=== PATIENT | male | born 1975 | race Caucasian/White ===

== ENCOUNTER 2024-09-27 10:34 | Emergency (ER) | payer OTHER, SELFPAY ==
[2024-09-27 10:49] VITALS: BP 149/66
--- NOTE | 2024-09-27 11:28 | ED.GENMED ---
History of Present Illness
General
Chief Complaint: Musculo-Skeletal Complaint
Source: patient
Time Seen by Provider: 09/27/24 11:15
History of Present Illness
History of Present Illness:
49yoM with a remote history of substance abuse (sober for 18 years, currently on Suboxone) presenting for evaluation of low back pain. He reports pain in his right lower back for the past 2 days. He denies any trauma or inciting incident. The pain
is worse with movement and certain positions. The pain is non-radiating. 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 He has not taken anything OTC for his symptoms. He denies any weakness or paresthesias of the
extremities. He denies any fevers, abdominal pain, dysuria, hematuria, incontinence, saddle anesthesia, weight loss. No prior history of back surgeries.
Past History
Past History
ED Past Medical History: Other (back pain) and Other (Pulmonary blebs)
ED Past Surgical History: Orthopedic
Social History
Tobacco: Smoker
Personal: Single
Living: with family
Employment: Employed
Phy Exam
General Physical Exam
General Presentation: well appearing and no apparent distress
General age: appears stated age
General Skin: warm and dry
General Habitus: normal
General Mental: alert
General Hydration: appears well hydrated
Pulmonary Exam
Pulmonary Exam: no respiratory distress
Gastrointestinal Exam
Gastrointestinal Exam: non tender, soft and non distended
Neurological Exam
Neurological Exam: alert and no motor deficits (5/5 strength in bilateral lower extremities)
Miladys Coma Scale
Eye Opening: Spontaneous
Verbal Response: Oriented
Motor Response: Obeys Commands
GCS Total Score: 15
Musculoskeletal Exam
Musculoskeletal Exam: other (No tenderness to palpation of lumbar region. Pain elicited with trunk flexion. No skin changes. Negative straight leg raise bilaterally. )
Skin Exam
Skin Exam: normal color and warm/dry
Psychiatric Exam
Psychiatric Exam: normal mood/affect
Course
Orders/Labs/Results
Orders:
Orders
09/27/24 11:28
Ketorolac [Toradol] 30 mg IM NOW STA
Vital Signs
Initial and Last Documented VS:
Initial Vital Signs
Temp Pulse Resp BP Pulse Ox
97.9 F 72 16 149/66 95
09/27/24 10:49 09/27/24 10:49 09/27/24 10:49 09/27/24 10:49 09/27/24 10:49
Last Documented Vital Signs
Temp Pulse Resp BP Pulse Ox
97.9 F 83 20 134/82 98
09/27/24 10:49 09/27/24 12:38 09/27/24 12:38 09/27/24 12:38 09/27/24 12:38
MDM/Problems Addressed
Differential Diagnosis Includes:
49yoM here with atraumatic R lower back pain x 2 days. Worse with movement. No red flags in history including no saddle anesthesia, incontinence, fevers, weight loss. VSS. He is well appearing in no distress. There is no reproducible tenderness to
palpation of the lumbar region but pain is elicited with trunk flexion. Lower extremities are neurovascularly intact.
No paresthesias/pain in the leg to suggest radiculopathy. Pain is constant and position so doubt kidney stone. No midline spinous process tenderness or mechanism to suggest fracture. Clinical presentation consistent with a lumbar strain. No
indication for imaging at this time. Supportive care discussed including heat, lidocaine patches, and PRN Tylenol/ibuprofen. Advised f/u with PCP and orthopedics if symptoms persist. Strict ED return precautions discussed including new
weakness/paresthesias or incontinence. He expressed understanding and is in agreement with plan. He was discharged in stable condition.
*Critical Care Note
Total Time (30-74mins, 75-104mins- exclusive of procedures): Not Applicable
ED Attending Note
-
Portions of this chart may have been created with voice recognition software.� Occasional wrong word or��sound alike� substitutions may have occurred due to the inherent limitations of voice recognition software.
Discharge Plan
Departure
Patient Disposition: Home (Routine Discharge)
Date of Disposition: 09/27/24
Time of Disposition: 11:30
Patient with high blood pressure during this ER visit?: Yes
Discharge Problem:
Strain of lumbar region
Instructions: Back Muscle Strain (DC)
Prescriptions:
No Action
cyclobenzaprine 10 mg Tablet
10 mg PO HS
temazepam 30 mg Capsule
30 mg PO HS
Patient Comments:
08/18/22: Per PDMP, last filled 08/10/22 #30 for 30 days
buprenorphine-naloxone [Suboxone] 8-2 mg Tablet, Sublingual
1 tab SUBLINGUAL TID
Patient Comments:
08/18/22: Per PDMP, last filled 08/10/22 #90 for 30 days
fluticasone propionate [Flonase Allergy Relief] 50 mcg/actuation spray,suspension
1 spray intranasal DAILY Qty: 16 0RF
Referrals:
Bentley Alfred MD [Active] -
Activity Restrictions/Additional Instructions:
Apply heat to affected area. Use lidocaine patches daily (12 hours on, 12 hours off). Take Tylenol 650mg and ibuprofen 600mg every 6 hours as needed for pain.
Please follow-up with your family doctor and orthopedics if symptoms persist.
Return to the ER with any worsening symptoms, new weakness/numbness, or incontinence.
Interventions
Interventions:
*Risk Screen - Suicide Last Done: 09/27/24 12:38
*General Assessment Last Done: 09/27/24 12:38
*Neglect/Abuse Screening Last Done: 09/27/24 12:38
ED- Fall Risk Assessment Last Done: 09/27/24 12:40
*ED COVID-19 Vaccine History Last Done: 09/27/24 12:38
*Nursing Disposition Last Done: 09/27/24 12:40
ED-Musculoskeletal Assessment Last Done: 09/27/24 12:38
Discharge Date and Time
Discharge Date/Time: 09/27/24 12:40
Print Language: SAMMARINESE
[2024-09-27] MEDS: TORADOL 30 MG IM (11:54)
[2024-09-27 12:38] VITALS: BP 134/82
== END 2024-09-27 12:40 | disposition home or self-care (01) ==
LOC: EMR 10:34
PROVIDERS: EMERGENCY PHYSICIAN Emergency Medicine; FAMILY PHYSICIAN Family Medicine
DX: S39.012A Strain of muscle, fascia and tendon of lower back, initial encounter (principal); X58.XXXA Exposure to other specified factors, initial encounter; F17.200 Nicotine dependence, unspecified, uncomplicated
CPT/HCPCS: 96372; 99284